=== PATIENT | female | born 1985 | race Caucasian/White ===

== ENCOUNTER 2024-03-01 09:54 | Emergency (ER) | payer OTHER ==
[~2024-03-01] VITALS: Ht 167.6 cm; Wt 105.0 kg
[2024-03-01 09:59] VITALS: BP 110/59
[2024-03-01 10:00] VITALS: BP 98/61
[2024-03-01] MEDS ORDERED: Diph, Acellular Pertussis, Tet 0.5 ML/VIAL (Tdap) SDV IM ONE (10:05)
[2024-03-01] MEDS ORDERED: PEPCID20 MG PO (10:06)
[2024-03-01] MEDS ORDERED: LIDOcaine HCl 1% (Local Anesth.) 20 ML VIAL STI STA (10:29)
[2024-03-01 10:30] VITALS: BP 108/64
[2024-03-01] MEDS ORDERED: POVIDONE IODINE 0.5 OZ/BTL TOP ONE (10:30)
[2024-03-01 10:45] VITALS: BP 116/61
[2024-03-01] MEDS ORDERED: AMOX/K CLAV875 M1 PO (11:12)
[2024-03-01 11:33] VITALS: BP 142/70
== END 2024-03-01 11:35 | disposition home or self-care (01) | DRG 605 ==
LOC: ED 09:54
PROC: 0HQGXZZ Repair Left Hand Skin, External Approach (ICD-10-PCS; principal; 2024-03-01)
DX: S61.251A Open bite of left index finger without damage to nail, initial encounter (principal); W54.0XXA Bitten by dog, initial encounter; Y92.009 Unspecified place in unspecified non-institutional (private) residence as the place of occurrence of the external cause